=== PATIENT | male | born 1965 | race Caucasian/White ===

== ENCOUNTER 2020-04-16 11:45 | Emergency (ER) | payer BC ==
[~2020-04-16] VITALS: Ht 190.5 cm; Wt 113.6 kg
[2020-04-16] MEDS ORDERED: LIDOCAINE 2%/EPI 1:100,000 20 ML VIAL. IJ ONE (12:15)
[2020-04-16] MEDS ORDERED: NEOMY/BACITR/POLYMYXIN OINT PACKET. TP ONE (12:15)
[2020-04-16] MEDS ORDERED: CEPH-264 PO (12:42)
--- NOTE | 2020-04-16 12:42 | PHYS DOC ---
Past History Past Medical History: Hypertension Past Surgical History: Appendectomy Smoking: Non-smoker Alcohol Use: Occasionally Drug Use: None General Adult EDM: Chief Complaint: PUNCTURE WOUND HPI: HPI: Patient is a 54-year-old male who presents with a puncture wound to his right upper back by a fishing year and hook that occurred 30 minutes prior to arrival. Patient states that he was trying to throw the fishing line when the hook became caught on his back. Patient states that his friend attempted to remove the hook and caused it to get further stuck in his skin. Patient denies any pain at this time. Denies numbness or tingling. Patient states that he is unsure if he is up-to-date on his tetanus vaccine. Review of Systems: Review of Systems: Constitutional: Denies fever or chills Eyes: Denies redness or eye pain HENT: Denies nasal congestion or sore throat Respiratory: Denies cough or shortness of breath Cardiovascular: Denies chest pain or palpitations GI: Denies abdominal pain, nausea, or vomiting : Denies dysuria or hematuria Musculoskeletal: Denies back pain or joint pain Integument: Denies rash or skin lesions. Reports puncture wound to right upper back by fishing lure. Neurologic: Denies headache, focal weakness or sensory changes Complete systems were reviewed and found to be within normal limits, except as documented in this note. Current Medications: Current Meds: Current Medications Medications (Trade) Dose Ordered Sig/Christopher Start Time Stop Time Status Last Admin Dose Admin Lidocaine/ Epinephrine (Xylocaine 2%-Epi 1:100,000) 20 ml 1X ONCE 04/16/20 12:15 04/16/20 12:16 DC Neomycin/ Polymyxin/ Bacitracin (Triple Antibiotic Ointment) 1 pkt 1X ONCE 04/16/20 12:15 04/16/20 12:16 DC Allergies: Allergies: Allergies Coded Allergies Type Severity Reaction Last Updated Verified No Known Drug Allergies 04/16/20 No Physical Exam: PE: Constitutional: Well developed, well nourished, no acute distress, non-toxic appearance HENT: Normocephalic, atraumatic Eyes: PERRL, EOMI, conjunctiva normal, no discharge Neck: Normal range of motion, no tenderness, supple Lungs & Thorax: No respiratory distress, equal chest rise and fall Abdomen: Soft, no tenderness Skin: Warm, dry, no erythema, no rash. Back: Fishing lure with two treble hooks present on the right upper back with mild tenderness and erythema to palpation at the location of the puncture wounds. No CVA tenderness. Extremities: No tenderness, ROM intact, no edema Neurologic: Alert and oriented X 3, normal motor function, normal sensory function, no focal deficits noted Psychologic: Affect normal, judgment normal Current Patient Data: Vital Signs: Vital Signs Date Time Temp Pulse Resp B/P (MAP) Pulse Ox O2 Delivery O2 Flow Rate FiO2 04/16/20 12:04 97.9 106 20 100 Course & Med Decision Making: Course & Med Decision Making Patient consented to the removal of the fishing lure in the emergency room. The area of the puncture wound was numbed up with lidocaine with epinephrine. The fishing lure was removed with pliers and patient tolerated the procedure with no difficulty. Patient was informed that tetanus vaccination is good for 10 years without any lacerations or punctures. Patient stated that he will follow-up with his PCP to get his tetanus vaccination up-to-date and was agreeable to not receive it in the emergency room. Dragon Disclaimer: Dragon Disclaimer: This electronic medical record was generated, in whole or in part, using a voice recognition dictation system. Departure Departure: Impression: Primary Impression: Fishing hook foreign body Qualified Codes: W45.8XXA - Other foreign body or object entering through skin, initial encounter Disposition: HOME/RESIDENCE PRIOR TO ADM Condition: STABLE Referrals: ROBERTO GO MD (PCP) Patient Instructions: Fish Hook Removal Additional Instructions: Do not soak your wound. You may shower. Clean wound daily with soap and water. Change dressing 2 times daily. Use over the counter antibiotic ointment with each dressing change. Hold antibiotics for 48 hours. For increased redness or signs of infection or for fever > 100.3 F after 48 hours then start antibiotics as prescribed. Use [id number] ibuprofen and or Tylenol for pain or discomfort. Scripts Cephalexin (KEFLEX) 500 Mg Capsule 1 CAP PO QID for Infection for 7 Days, #28 CAP 0 Refills Prov: EHSAN OSORIO DO 04/16/20 Justification of Admission: Justification of Admission: Justification of Admission Dx: N/A EHSAN OSORIO DO Apr 16, 2020 12:42
== END 2020-04-16 12:46 | disposition home or self-care (01) ==
LOC: ER 11:45
DX: S21.241A Puncture wound with foreign body of right back wall of thorax without penetration into thoracic cavity, initial encounter (principal); I10 Essential (primary) hypertension; W45.8XXA Other foreign body or object entering through skin, initial encounter; Y93.89 Activity, other specified; Y92.89 Other specified places as the place of occurrence of the external cause; Y99.8 Other external cause status
CPT/HCPCS: 99284

== ENCOUNTER 2021-04-21 06:08 | Emergency (ER) | payer BC ==
[~2021-04-21] VITALS: Ht 190.5 cm; Wt 113.9 kg
[~2021-04-21 06:08] MED LIST: CEPH-264 PO
[2021-04-21 06:14] VITALS: BP 159/102
--- NOTE | 2021-04-21 06:56 | PHYS DOC ---
Past History Past Medical History: Hypertension Past Surgical History: Appendectomy Smoking: Non-smoker Alcohol Use: Occasionally Drug Use: None General Adult EDM: Chief Complaint: FOOT INJURY PAIN HPI: HPI: 55-year-old male presents with report of left foot pain and swelling. Patient reports at 0800 yesterday morning patient was running on a and even field at "full speed "from a calf. Patient reports sensation of feeling a "pop" on his foot with subsequent swelling and pain. Patient reports some bruising. Reports using an Kwadwo wrap and trying to elevate and ice yesterday however pain was still significant this morning and therefore decided to present to the ER for evaluation. Denies prior injury to the foot. Reports worse to medial aspect and pain with movement of his big toe. Review of Systems: Review of Systems: Constitutional: Denies fever or chills Musculoskeletal: Reports left foot pain Integument: Reports left foot bruising and swelling Neurologic: Denies headache, focal weakness or sensory changes Complete systems were reviewed and found to be within normal limits, except as documented in this note. Allergies: Allergies: Allergies Coded Allergies Type Severity Reaction Last Updated Verified No Known Drug Allergies 04/16/20 No Physical Exam: PE: Constitutional: Well developed, well nourished, no acute distress, non-toxic appearance HENT: Normocephalic, atraumatic Eyes: Conjunctiva normal, no discharge Neck: Normal range of motion, supple Lungs & Thorax: No respiratory distress, equal chest rise and fall Skin: Warm, dry, no erythema, no rash, mild ecchymosis and swelling to left forefoot and base of toes Extremities: Tenderness to left forefoot with ecchymoisis and swelling as above, left DP and PT +2 Neurologic: Alert and oriented X 3, normal motor function, normal sensory function, no focal deficits noted Psychologic: Affect normal, judgment normal Current Patient Data: Vital Signs: Vital Signs Date Time Temp Pulse Resp B/P (MAP) Pulse Ox O2 Delivery O2 Flow Rate FiO2 04/21/21 06:14 97.6 96 16 159/102 (121) 99 Room Air EKG: EKG: [] Radiology/Procedures: Radiology/Procedures: FOOT LT 3 VIEWS 1. No acute fracture or dislocation 2. Mild dorsal forefoot soft tissue swelling 3. Mild degenerative changed first TMT joint 4. Old/healed fifth metatasal fracture Heart Score: C/O Chest Pain: N/A Course & Med Decision Making: Course & Med Decision Making Pertinent Imaging studies reviewed. (See chart for details) Patient presents with left foot pain, swelling, and bruising. Patient denies need for pain medication. Ice applied. X-ray obtained with findings consistent for distal fifth metatarsal fracture. Kwadwo wrap and postop shoe applied. Crutches provided. Patient stable for discharge with outpatient follow-up with PCP and podiatry. Podiatry referral provided. Discussed findings and plan with patient, who acknowledges understanding and agreement. Molly Disclaimer: Molly Disclaimer: This electronic medical record was generated, in whole or in part, using a voice recognition dictation system. Splinting Splinting : Location: Left foot Pre-Made Type: Kwadwo bandage and postop shoe Pre-Proc Neuro Vasc Exam: normal Post-Proc Neuro Vasc Exam: normal, unchanged from pre-exam Departure Departure: Impression: Primary Impression: Sprain of left foot Qualified Codes: S93.602A - Unspecified sprain of left foot, initial encounter Additional Impression: Fracture of fifth metatarsal bone of left foot Qualified Codes: S92.352A - Displaced fracture of fifth metatarsal bone, left foot, initial encounter for closed fracture Disposition: HOME / SELF CARE / HOMELESS Condition: STABLE Referrals: ROBERTO GO MD (PCP) TYLER OLIVERA DPM Patient Instructions: Crutch Use, [id number], Foot Fracture, Hard-Soled Shoe Additional Instructions: Follow closely with podiatry. Maintain foot in postop shoe and nonweightbearing with crutches. May ice area 20 minutes on then leave off next 20 minutes. Repeat several times daily for the next few days. Use [id number] Tylenol and/or ibuprofen for pain or discomfort. EHSAN OSORIO DO Apr 21, 2021 06:56
--- NOTE | 2021-04-21 14:01 | RAD ---
EXAM: AP, oblique and lateral views of the left foot DATE: 04/21/2021 6:29 AM INDICATION: Reason: pain/swelling to 1st/2nd metatarsals / Spl. Instructions: / History: COMPARISON: No Prior FINDINGS: No acute fracture or dislocation. Old/healed fifth metatarsal fracture. Mild degenerative changes at the TMT joints particularly the first and second TMT joint. Mild dorsal forefoot soft tissue swelling . IMPRESSION: 1. No acute fracture or dislocation. 2. Mild dorsal forefoot soft tissue swelling. 3. Mild degenerative changes first TMT joint. Electronically signed by: Kristopher Sellers MD (04/21/2021 7:16 AM) BETTIE
== END 2021-04-21 07:13 | disposition home or self-care (01) ==
LOC: ER 06:08
DX: S92.352A Displaced fracture of fifth metatarsal bone, left foot, initial encounter for closed fracture (principal); S93.602A Unspecified sprain of left foot, initial encounter; I10 Essential (primary) hypertension; X50.9XXA Other and unspecified overexertion or strenuous movements or postures, initial encounter; Y93.02 Activity, running; Y92.89 Other specified places as the place of occurrence of the external cause; Y99.8 Other external cause status
CPT/HCPCS: 73630; 99283

== ENCOUNTER → 2021-09-11 | Outpatient (CLI) | payer OTHER ==
--- NOTE | 2021-09-11 13:05 | RAD ---
EXAM: Left foot, 3 views. HISTORY: Pain after running. COMPARISON: 04/21/2021 FINDINGS: 3 views left foot are obtained. There is a healed fifth metatarsal fracture. No acute fract ure is seen. There is no dislocation or subluxation. There is no suspicious osseous lesion. There is minimal enthesopathy at the Achilles insertion. IMPRESSION: No acute osseous finding. Electronically signed by: Chuyita Zambrano MD (09/11/2021 1:03 PM) [id number]
== END ==
LOC: RAD 12:38
PROVIDERS: ATTEND Podiatrist
DX: S93.325D Dislocation of tarsometatarsal joint of left foot, subsequent encounter (principal); M77.8 Other enthesopathies, not elsewhere classified; X58.XXXD Exposure to other specified factors, subsequent encounter
CPT/HCPCS: 73630